=== PATIENT | male | born 2000 | race Caucasian/White ===

== ENCOUNTER 2023-10-09 12:12 | Day surgery (SDC) | payer OTHER ==
[~2023-10-09] VITALS: Ht 172.7 cm; Wt 75.7 kg
[2023-10-09] MEDS ORDERED: diphenhydrAMINE 50 MG/ML VIAL ONE (12:59)
[2023-10-09] MEDS ORDERED: fentaNYL citrate 0.05 MG/ML VIAL ONE (13:00)
[2023-10-09] MEDS ORDERED: MIDAZOLAM 5 MG/5 ML VIAL ONE (13:00)
[2023-10-09] MEDS ORDERED: LIDOCAINE 2% 100 MG/5 ML UJET TP ONE (13:00)
[2023-10-09] MEDS ORDERED: MIDAZOLAM 5 MG/5 ML VIAL IV ONE (14:30)
[2023-10-09] MEDS ORDERED: fentaNYL citrate 0.05 MG/ML VIAL IVP ONE (14:30)
[2023-10-09] MEDS ORDERED: diphenhydrAMINE 50 MG/ML VIAL IVP ONE (14:30)
== END 2023-10-09 15:20 | disposition home or self-care (01) ==
LOC: MOR 12:12 → MMU 12:28 → MOR 15:20
PROVIDERS: ATTEND Internal Medicine Gastroenterology
DX: K62.5 Hemorrhage of anus and rectum (principal); F32.A Depression, unspecified; Z79.899 Other long term (current) drug therapy
CPT/HCPCS: 45378; J1200; J2250; J3010